=== PATIENT | female | born 1940 | race Caucasian/White ===

== ENCOUNTER 2023-04-23 04:09 | Emergency (ER) | payer MEDICARE, BC ==
[~2023-04-23] VITALS: Ht 157.5 cm; Wt 70.5 kg
[2023-04-23 04:58] LABS: BASO % 0.2 % (0.0-2.0); EOS # 0.1 K/mm3 (0.0-0.7); EOS % 0.6 % (0.0-4.0); GRAN # 8.7 K/mm3 (1.4-6.5); GRAN % 78.8 % (42.2-75.2); HEMATOCRIT 43.5 % (37.0-47.0); HEMOGLOBIN 14.1 g/dl (12.5-16.0); LYMPH # 1.4 K/mm3 (1.2-3.4); LYMPH % 13.1 % (20.0-51.0); MEAN CELL VOLUME 94 fl (80.0-100.0); MEAN CORPUSCULAR HEMOGLOBIN 31 pg (27-31); MEAN CORPUSCULAR HGB CONC 32 g/dl (33.0-37.0); MEAN PLATELET VOLUME 8.5 fl (7.4-10.4); MONO # 0.7 K/mm3 (0.1-0.6); MONO % 6.6 % (1.7-9.3); PLATELET COUNT 228 K/mm3 (130-400); RED BLOOD COUNT 4.61 M/mm3 (4.10-5.30); REDCELL DISTRIBUTION WIDTH-CV 12.8 % (11.5-14.5)
[2023-04-23 05:18] LABS: TROPONIN-I 0.125 ng/mL (0.00-0.033)
[2023-04-23 05:23] LABS: ALBUMIN 3.8 gm/dL (3.4-4.8); BILIRUBIN,TOTAL 0.5 mg/dL (0.2-1.2); CALCIUM 9.4 mg/dL (8.4-10.2); CREATININE, serum 1.06 mg/dL (0.57-1.11); POTASSIUM 4.4 mmol/L (3.5-4.5); TOTAL PROTEIN 7.4 gm/dL (6.2-8.1)
[2023-04-23] MEDS ORDERED: PREDNISONE10 MG PO (12:42)
[2023-04-23] MEDS ORDERED: COZAAR 50MG50 MG/TAB PO (12:43)
[2023-04-23 14:36] VITALS: BP 149/79; PULSE 79; TEMP 98.2
== END 2023-04-23 15:07 | disposition short-term general hospital (02) ==
LOC: COL.ER 04:09
PROVIDERS: Emergency Medicine
DX: I21.4 Non-ST elevation (NSTEMI) myocardial infarction (principal); Z20.822 Contact with and (suspected) exposure to COVID-19
CPT/HCPCS: J2270; J2405; J7512; Q9967